=== PATIENT | male | born 1960 | race Caucasian/White ===

== ENCOUNTER 2017-04-09 12:13 | Emergency (ER) | payer SELFPAY ==
[~2017-04-09] VITALS: Ht 185.4 cm; Wt 89.0 kg
[2017-04-09 12:21] VITALS: BP 131/80
== END 2017-04-09 14:28 | disposition home or self-care (01) ==
LOC: ER 12:38
DX: S00.83XA Contusion of other part of head, initial encounter (principal); F17.200 Nicotine dependence, unspecified, uncomplicated; F12.10 Cannabis abuse, uncomplicated; X58.XXXA Exposure to other specified factors, initial encounter; Y93.89 Activity, other specified; Y92.89 Other specified places as the place of occurrence of the external cause; Y99.8 Other external cause status
CPT/HCPCS: 70486; 99284